=== PATIENT | female | born 1970 | race Caucasian/White ===

== ENCOUNTER 2020-11-28 22:02 | Emergency (ER) | payer MEDICARE | END 2020-11-29 02:41 | disposition home or self-care (01) | LOC: ER1 22:02 | DX: S61.210A Laceration without foreign body of right index finger without damage to nail, initial encounter (principal); I10 Essential (primary) hypertension; F17.210 Nicotine dependence, cigarettes, uncomplicated; Z23 Encounter for immunization; W27.2XXA Contact with scissors, initial encounter; Y92.009 Unspecified place in unspecified non-institutional (private) residence as the place of occurrence of the external cause | CPT/HCPCS: 12001; 90471; 90715; 99282 ==

== ENCOUNTER → 2021-04-23 | Outpatient (CLI) | payer MEDICARE ==
[~2021-04-23] MED LIST: CEFDINIR300 MG PO; PYRIDIUM200 MG PO; ZOFRAN4 MG PO
== END ==
LOC: MAMO 08:00
DX: Z12.31 Encounter for screening mammogram for malignant neoplasm of breast (principal)
CPT/HCPCS: 77063; 77067

== ENCOUNTER 2021-06-06 07:20 | Emergency (ER) | payer MEDICARE ==
[2021-06-06 08:08] LABS: HEMOGLOBIN 13.8 gm/dl (12.3-15.3); RED BLOOD COUNT 4.92 M/UL (4.00-5.10); WHITE BLOOD COUNT 8.5 K/UL (4.5-11.0)
[2021-06-06] MEDS ORDERED: PYRIDIUM200 MG PO (09:09)
[2021-06-06] MEDS ORDERED: ZOFRAN4 MG PO (09:09)
[2021-06-06] MEDS ORDERED: CEFDINIR300 MG PO (09:09)
== END 2021-06-06 09:45 | disposition home or self-care (01) ==
LOC: ER1 07:20
PROVIDERS: Physician Assistant
DX: N39.0 Urinary tract infection, site not specified (principal); E78.5 Hyperlipidemia, unspecified; I10 Essential (primary) hypertension; Z88.2 Allergy status to sulfonamides; Z88.5 Allergy status to narcotic agent; Z87.442 Personal history of urinary calculi; Z88.8 Allergy status to other drugs, medicaments and biological substances
CPT/HCPCS: 80053; 81001; 85025; 99284

== ENCOUNTER 2021-08-04 09:45 | Emergency (ER) | payer MEDICARE ==
[~2021-08-04] VITALS: Ht 162.6 cm; Wt 94.3 kg
== END 2021-08-04 13:35 | disposition home or self-care (01) ==
LOC: ER1 09:45
DX: Z23 Encounter for immunization (principal); U07.1 COVID-19; J02.9 Acute pharyngitis, unspecified; E78.5 Hyperlipidemia, unspecified; I10 Essential (primary) hypertension; F17.200 Nicotine dependence, unspecified, uncomplicated; Z88.2 Allergy status to sulfonamides; Z88.8 Allergy status to other drugs, medicaments and biological substances
CPT/HCPCS: 87081; 87880; 99283; M0243

== ENCOUNTER 2021-08-15 02:12 | Inpatient (IN) | payer MEDICARE, MEDICAID ==
[~2021-08-15] VITALS: Ht 162.6 cm; Wt 906.3 kg
[2021-08-15 03:10] LABS: HEMOGLOBIN 14.7 gm/dl (12.3-15.3); RED BLOOD COUNT 5.18 M/UL (4.00-5.10); WHITE BLOOD COUNT 9.6 K/UL (4.5-11.0)
[2021-08-15 03:23] LABS: BUN/CREATININE RATIO 11 (0-10)
[2021-08-15] MEDS ORDERED: BUSPAR 10MG10 MG PO (05:59)
[2021-08-15] MEDS ORDERED: SERTRALINE HCL100 MG PO (06:00)
[2021-08-15] MEDS ORDERED: COZAAR 25MG TAB25 MG PO (06:00)
[2021-08-15] MEDS ORDERED: ZOCOR 40 MG TAB40 MG PO (06:01)
[2021-08-15] MEDS ORDERED: ZYRTEC10 M3 PO (06:02)
[2021-08-15] MEDS ORDERED: BETASERON SQ (06:03)
[2021-08-15] MEDS ORDERED: MIRTAZAPINE15 MG PO (09:56)
[2021-08-15 14:13] LABS: WHITE BLOOD COUNT 9.2 K/UL (4.5-11.0)
[2021-08-15 14:15] LABS: HEMOGLOBIN 12.6 gm/dl (12.3-15.3); RED BLOOD COUNT 4.51 M/UL (4.00-5.10)
[2021-08-15 14:41] LABS: BUN/CREATININE RATIO 9 (0-10)
[2021-08-16 05:21] LABS: HEMOGLOBIN 11.8 gm/dl (12.3-15.3); RED BLOOD COUNT 4.19 M/UL (4.00-5.10); WHITE BLOOD COUNT 7.6 K/UL (4.5-11.0)
[2021-08-16 05:49] LABS: BUN/CREATININE RATIO 10 (0-10)
[2021-08-16] MEDS ORDERED: BRILINTA90 MG PO (13:28)
[2021-08-16] MEDS ORDERED: ASPIRIN EC81 MG PO (13:28)
[2021-08-16] MEDS ORDERED: LOSARTAN POTASS50 MG PO (13:29)
[2021-08-16] MEDS ORDERED: LOPRESSOR 25 MG25 MG PO (13:29)
[2021-08-16] MEDS ORDERED: ATORVASTATIN CA80 MG PO (13:29)
[2021-08-16] MEDS ORDERED: NITROSTAT 0.40.4 MG SL (13:30)
== END 2021-08-16 15:45 | disposition home or self-care (01) | DRG 246 ==
LOC: ER1 02:12 → CDU 03:05 → CCU 03:05
PROVIDERS: Family Medicine; Internal Medicine Interventional Cardiology; ADMIT Internal Medicine
PROC: 8E0ZXY6 Isolation (ICD-10-PCS; principal; 2021-08-15)
PROC: 027034Z Dilation of Coronary Artery, One Artery with Drug-eluting Intraluminal Device, Percutaneous Approach (ICD-10-PCS; 2021-08-15)
PROC: 02C03ZZ Extirpation of Matter from Coronary Artery, One Artery, Percutaneous Approach (ICD-10-PCS; 2021-08-15)
PROC: 4A023N7 Measurement of Cardiac Sampling and Pressure, Left Heart, Percutaneous Approach (ICD-10-PCS; 2021-08-15)
PROC: B2151ZZ Fluoroscopy of Left Heart using Low Osmolar Contrast (ICD-10-PCS; 2021-08-15)
PROC: 3E0333Z Introduction of Anti-inflammatory into Peripheral Vein, Percutaneous Approach (ICD-10-PCS; 2021-08-15)
DX: I21.09 ST elevation (STEMI) myocardial infarction involving other coronary artery of anterior wall (principal); U07.1 COVID-19; J12.82 Pneumonia due to coronavirus disease 2019; E78.5 Hyperlipidemia, unspecified; F41.9 Anxiety disorder, unspecified; F32.9 Major depressive disorder, single episode, unspecified; F17.200 Nicotine dependence, unspecified, uncomplicated; I10 Essential (primary) hypertension; Z96.619 Presence of unspecified artificial shoulder joint; G35 Multiple sclerosis; Z86.16 Personal history of COVID-19; Z90.49 Acquired absence of other specified parts of digestive tract; Z98.51 Tubal ligation status; Z95.5 Presence of coronary angioplasty implant and graft; Z95.828 Presence of other vascular implants and grafts; Z98.890 Other specified postprocedural states; Z82.49 Family history of ischemic heart disease and other diseases of the circulatory system; Z83.438 Family history of other disorder of lipoprotein metabolism and other lipidemia; Z82.3 Family history of stroke; Z71.6 Tobacco abuse counseling; Z88.8 Allergy status to other drugs, medicaments and biological substances
CPT/HCPCS: ECHO; 36415; 71045; 80048; 80053; 82550; 82553; 83690; 83874; 84132; 84484; 85025; 85027; 85347; 85610; 93005; 93306; 99152; 99153; 99285; C1725; C1757; C1769; C1874; C1887; J0360; J0461; J1644; J2060; J2250; J2370; J3010; J3246; J7040; Q9965; U0002

== ENCOUNTER → 2021-09-23 | Outpatient (CLI) | payer MEDICARE ==
[~2021-09-23] MED LIST changes: +ASPIRIN EC81 MG PO; +ATORVASTATIN CA80 MG PO; +BETASERON SQ; +BRILINTA90 MG PO; +BUSPAR 10MG10 MG PO; +COZAAR 25MG TAB25 MG PO; +LOPRESSOR 25 MG25 MG PO; +LOSARTAN POTASS50 MG PO; +MIRTAZAPINE15 MG PO; +NITROSTAT 0.40.4 MG SL; +SERTRALINE HCL100 MG PO; +ZOCOR 40 MG TAB40 MG PO; +ZYRTEC10 M3 PO
== END ==
LOC: HEART 5 13:30
DX: I25.10 Atherosclerotic heart disease of native coronary artery without angina pectoris (principal); I08.1 Rheumatic disorders of both mitral and tricuspid valves; I51.7 Cardiomegaly
CPT/HCPCS: 93306

== ENCOUNTER → 2021-10-02 | Outpatient (CLI) | payer MEDICARE | LOC: EMI 04-02 14:00 | DX: G35 Multiple sclerosis (principal); R93.0 Abnormal findings on diagnostic imaging of skull and head, not elsewhere classified | CPT/HCPCS: 70553; A9577 ==

== ENCOUNTER 2021-12-27 06:40 | Emergency (ER) | payer MEDICARE ==
[2021-12-27 07:37] LABS: HEMOGLOBIN 14.1 gm/dl (12.3-15.3); RED BLOOD COUNT 5.07 M/UL (4.00-5.10)
[2021-12-27 08:16] LABS: BUN/CREATININE RATIO 8 (0-10)
[2021-12-27] MEDS ORDERED: PROAIR DIGIHAL90 MCG INH (10:46)
[2021-12-27] MEDS ORDERED: BENZONATATE100 MG PO (10:46)
== END 2021-12-27 11:05 | disposition home or self-care (01) ==
LOC: ER1 06:40
PROVIDERS: Emergency Medicine
DX: U07.1 COVID-19 (principal); I25.2 Old myocardial infarction; I10 Essential (primary) hypertension; F17.210 Nicotine dependence, cigarettes, uncomplicated
CPT/HCPCS: 0240U; 71045; 80048; 82550; 82553; 83874; 84484; 85025; 93005; 99285

== ENCOUNTER → 2022-02-18 | Outpatient (CLI) | payer MEDICARE ==
[~2022-02-18] MED LIST changes: +BENZONATATE100 MG PO; +PROAIR DIGIHAL90 MCG INH
== END ==
LOC: EXRD 11:11
DX: Q61.3 Polycystic kidney, unspecified (principal)
CPT/HCPCS: 76775

== ENCOUNTER → 2022-03-09 | Outpatient (CLI) | payer MEDICARE | LOC: KOH-I 10:01 | DX: N20.0 Calculus of kidney (principal); R10.9 Unspecified abdominal pain; Q61.3 Polycystic kidney, unspecified | CPT/HCPCS: 74176 ==

== ENCOUNTER → 2022-05-06 | Outpatient (CLI) | payer MEDICARE | LOC: CT 08:20 | DX: Q61.3 Polycystic kidney, unspecified (principal); N20.0 Calculus of kidney; R10.9 Unspecified abdominal pain; R31.9 Hematuria, unspecified | CPT/HCPCS: 36415; 74170; 82565; 84520; Q9967 ==

== ENCOUNTER → 2022-07-09 | Outpatient (CLI) | payer MEDICARE | LOC: LAB 11:23 | DX: R10.9 Unspecified abdominal pain (principal); R31.9 Hematuria, unspecified; Q61.3 Polycystic kidney, unspecified | CPT/HCPCS: 36415; 82565; 84520 ==

== ENCOUNTER → 2022-07-28 | Outpatient (CLI) | payer MEDICARE | LOC: EMI 07-13 14:00 | DX: G35 Multiple sclerosis (principal); R90.89 Other abnormal findings on diagnostic imaging of central nervous system; M47.812 Spondylosis without myelopathy or radiculopathy, cervical region | CPT/HCPCS: 70553; 72156; A9577 ==